=== PATIENT | female | born 1980 ===

== ENCOUNTER 2024-07-05 20:33 | Emergency (ER) | payer SELFPAY ==
[2024-07-05] MEDS: Ibuprofen 600 MG Tab PO ONE (22:08)
== END 2024-07-05 23:16 | disposition home or self-care (01) ==
LOC: EDSEX → MW.ED 20:33 → MERGE 20:33 → MW.ED 23:16
DX: S40.011A Contusion of right shoulder, initial encounter (principal); M54.2 Cervicalgia; W11.XXXA Fall on and from ladder, initial encounter; Y93.89 Activity, other specified
CPT/HCPCS: 72125; 73030; 73080; 73110; 99284; A9270; 99282